=== PATIENT | female | born 1950 | race Caucasian/White ===

== ENCOUNTER → 2016-09-17 | Outpatient (CLI) | payer BC ==
[~2016-09-17] MED LIST: DENOSUMAB 60 MG/ML 1 ML SYRINGE SQ ONE
[2016-09-17 14:11] VITALS: BP 122/61; PULSE 68; RESP 16; TEMP 98.2
== END | disposition home or self-care (01) ==
LOC: PROCWHC3 13:49
PROVIDERS: ATTEND Family Medicine
DX: M81.0 Age-related osteoporosis without current pathological fracture (principal)
CPT/HCPCS: 96372; J0897

== ENCOUNTER → 2017-03-18 | Outpatient (CLI) | payer BC ==
[2017-03-18 08:20] VITALS: BP 100/58; PULSE 69; RESP 16; TEMP 98.1
== END | disposition home or self-care (01) ==
LOC: PROCWHC3 08:07
PROVIDERS: ATTEND Family Medicine
DX: M81.0 Age-related osteoporosis without current pathological fracture (principal)
CPT/HCPCS: 96372; J0897

== ENCOUNTER → 2017-09-19 | Outpatient (CLI) | payer BC ==
[2017-09-19 09:57] VITALS: BP 111/55; PULSE 65; RESP 18; TEMP 98
== END | disposition home or self-care (01) ==
LOC: PROCWHC3 09:31
PROVIDERS: ATTEND Family Medicine
DX: M81.0 Age-related osteoporosis without current pathological fracture (principal)
CPT/HCPCS: 96372; J0897

== ENCOUNTER → 2018-04-10 | Outpatient (CLI) | payer BC ==
[2018-04-10 13:07] VITALS: BP 110/60; PULSE 71; RESP 16; TEMP 98.3
== END | disposition home or self-care (01) ==
LOC: PROCWHC3 12:50
PROVIDERS: ATTEND Family Medicine
DX: M81.0 Age-related osteoporosis without current pathological fracture (principal)
CPT/HCPCS: 96372; J0897

== ENCOUNTER → 2018-08-07 | Outpatient (CLI) | payer BC ==
--- NOTE | 2018-08-07 16:24 | BD ---
EXAMINATION TYPE: Axial Bone Density DATE OF EXAM: 08/07/2018 COMPARISON: 08.07.2016 CLINICAL HISTORY: 67 YR OLD FEMALE....ICD-10 CODE: Z78.0 ASYMPTOMATIC MENOPAUSAL STATE Height: 66.5 Weight: 139 FRAX RISK QUESTIONS: History of Fracture in Adulthood: YES Secondary Osteoporosis: YES 3. Menopause before 45: YES RISK FACTORS HISTORY OF: HX OF LT HUMORAL FX...AND LT WRIST AN ADULT Spine Fracture: COMPRESSION FX OF T12... AN ADULT History of Wrist Fracture: LT WRIST Active: YES Postmenopausal woman: TOTAL HYST AT 39 YRS OLD MEDICATIONS: Thyroid Medications: YES, SYNTHROID SINCE AGE 11 Additional Medications: VIT D Additional History: NOTHING TO NOTE EXAM MEASUREMENTS: Bone mineral densitometry was performed using the [employer] System. Bone mineral density as measured about the Lumbar spine is: ----- L1-L4(G/cm2): 1.188 T Score Values are as follows: ----- L1: 0.4 ----- L2: -0.8 ----- L3: 0.6 ----- L4: 0.0 ----- L1-L4: 0.1 Bone mineral density has: Increased 9.7% since study of: 08.07.2016 Bone mineral density about the R hip (g/cm2): 0.791 Bone mineral density about the L hip (g/cm2): 0.794 T Score values are as follows: -----R Neck: -0.9 -----L Neck: -1.4 -----R Total: -1.7 -----L Total: -1.7 Bone mineral density has: Increased 1.7% since study of: 08.07.2016 FRAX%s: THERE IS A 14.2% CHANCE FOR A MAJOR OSTEOPOROTIC FX AND A 1.8% FOR HIP FX....PROBABILITY O F FX IN 10 YRS TIME IMPRESSION: Osteopenia (T Score between -2.5 and -1). There is slightly increased risk of fracture and the patient may be considered for treatment. Re-Screen 2-5 years. NOTE: T-SCORE=SD OF THE YOUNG ADULT MEAN.
== END | disposition home or self-care (01) ==
LOC: RADBDWWP 14:48
PROVIDERS: ATTEND Family Medicine
DX: M85.80 Other specified disorders of bone density and structure, unspecified site (principal); Z78.0 Asymptomatic menopausal state
CPT/HCPCS: 77080

== ENCOUNTER → 2018-08-28 | Outpatient (CLI) | payer BC ==
--- NOTE | 2018-08-31 12:23 | EST ---
EXERCISE STRESS AGE: 67 SEX: Female HT: 68" WT: 140 lb PROTOCOL: Stress Echo STAGE: III DURATION OF EXERCISE: 8 minutes HEART RATE REST: 60 BLOOD PRESSURE REST: 97/51 MAXIMUM HEART RATE ACHIEVED: 153 MAXIMUM BLOOD PRESSURE: 165/69 85% MPHR: 129 100% MPHR: 152 METS: 9.7 INDICATIONS: Chest pain. RESULTS: Patient was exercised for a total period of 8 minutes. The peak heart rate of 153 was achieved. Maximum blood pressure of 165/69 mmHg was noted. The patient did not complain of any chest pain during the test. Resting EKG shows normal sinus rhythm with normal UT interval and QRS duration and normal ST-T waves. No ST-segment depression suggestive of ischemia is noted. Baseline echocardiographic images reveals normal left ventricular chamber size with normal left ventricular systolic function. In the immediate postexercise period, normal increase in the wall thickness and contractility is noted. FINAL IMPRESSION: This stress echocardiographic study is negative for stress-induced ischemia. EKG portion of the stress test is not suggestive of ischemia. MMODL / IJN: [id number] /
== END | disposition home or self-care (01) ==
LOC: RADNMMAIN 08:53
PROVIDERS: ATTEND Family Medicine
DX: R07.89 Other chest pain (principal)
CPT/HCPCS: 93351

== ENCOUNTER → 2018-12-11 | Outpatient (CLI) | payer BC ==
--- NOTE | 2018-12-11 11:16 | XR ---
EXAMINATION TYPE: XR cervical spine comp DATE OF EXAM: 12/11/2018 COMPARISON: None HISTORY: Cervical pain M 54.2 TECHNIQUE: Five-view cervical spine FINDINGS: Disc space narrowing is present C5-6 C6-7. Some posterior endplate spurring is present C5-C 6. The prevertebral space is normal. Posterior spinal lamellar line is intact. Some facet degenerativ e changes are present greater in the mid cervical spine Some narrowing of the C5-6 left foramen is present. Remaining foramen appear patent. Odontoid is limi clement with overlying occiput. IMPRESSION: 1. Mild foraminal narrowing C5-6 on the left. 2. Degenerative disc changes C5-6 C6-7
--- NOTE | 2018-12-11 11:40 | MR ---
EXAMINATION TYPE: MR brain wo/w con DATE OF EXAM: 12/11/2018 COMPARISON: None HISTORY: Migraine TECHNIQUE: Multiplanar, multisequence images of the brain and brainstem is performed without and with IV contras t, utilizing 6.5 mL intravenous Gadavist . FINDINGS: Diffusion weighted images demonstrate no evidence of a recent infarct or other diffusion ab normality. There are a few scattered areas of abnormal signal within the white matter which are nonsp ecific. Ventricular system is midline. Mild generalized degenerative change noted. Changes of mild chronic sinusitis noted. Bilateral mild chronic mastoiditis noted. Abnormal signal wi thin the basal ganglia bilaterally suggestive of a prominent Virchow-Senthil spaces or remote lacunar i nfarcts. Signal the renée may been the basis of previous ischemia. Midline structures demonstrate normal morphology. The craniocervical junction appears within normal limits. Post contrast images demonstrate no abnormal enhancement. The dural venous sinuses appear pa tent. IMPRESSION: 1. There are few scattered tiny areas of abnormal signal within the white matter which are nonspecifi c can be seen with migraine headaches, remote microvascular ischemia, or demyelinating process. Corre late clinically. 2. There are nondescript tiny focal areas of abnormal signal within the renée is nonspecific but likel y on the basis of remote ischemia.
== END ==
LOC: RADMRIMAIN 08:38
PROVIDERS: ATTEND Family Medicine
DX: R90.89 Other abnormal findings on diagnostic imaging of central nervous system (principal); M48.02 Spinal stenosis, cervical region; M50.322 Other cervical disc degeneration at C5-C6 level; G43.909 Migraine, unspecified, not intractable, without status migrainosus
CPT/HCPCS: 72050; 70553; A9585

== ENCOUNTER → 2018-12-24 | Outpatient (CLI) | payer BC ==
--- NOTE | 2018-12-24 21:24 | MR ---
EXAMINATION TYPE: MR cervical spine wo con DATE OF EXAM: 12/24/2018 COMPARISON: Correlation CT chest 06/25/2017 HISTORY: 68-year-old female with pain, Cervical disc degeneration TECHNIQUE: Multiplanar, multisequence images of the cervical spine were acquired. FINDINGS: No craniocervical junction abnormality, predental space widening, or prevertebral soft tissue swellin g. Preserved alignment of the cervical spine. No suspicious bone marrow placement. Moderate degenerative disc disease, greatest from C5 to C7 levels. Intervertebral discs are degenerat ed, desiccated, moderately narrowed, with discussed by complex formation. Posterior annular fissure n oted at C3-C4. Multilevel ligamentum flavum thickening and hypertrophic facet and uncovertebral joint degenerative c hanges demonstrated. At C2-C3, facet arthropathy without significant canal or foraminal stenosis. At C3-C4, facet and uncovertebral joint degenerative change. No significant canal or foraminal stenos is. At C4-C5, facet and uncovertebral joint degenerative change. Changes result in mild left neural monika inal stenosis. Disc osteophyte complex with posterior fissure and ligamentum flavum thickening contri butes to moderate spinal canal stenosis with abutment of both the dorsal and ventral cord. At C5-C6, uncovertebral joint and facet degenerative change with disc osteophyte complex and ligament um flavum thickening. Again, there is moderate spinal canal stenosis with abutment of both the dorsal and ventral cord. Slight ventral cord flattening. Changes result in moderate left and moderate to se francoise right neuroforaminal stenosis. At C6-C7, discussed by complex with uncovertebral joint and facet arthropathy. Changes result in mild narrowing of the spinal canal with slight abutment of the ventral cord. Severe right and moderate le ft neuroforaminal stenosis. At C7-T1, hypertrophic facet arthropathy particularly on the right contributes to moderate to severe right neuroforaminal stenosis. No spinal canal stenosis. No T2-weighted cord signal abnormality is identified. Cystic lesion within the posterior mediastinum, partially visualized, refer to sagittal image 11 and coronal image 7. Patient's prior 2017 CT shows similar cystic lesions, possible duplication cyst or l ymphangioma. IMPRESSION: 1. Moderate degenerative disc disease, greatest from C5 through C7 levels. Additional multilevel liga mentum flavum thickening and facet/uncovertebral joint arthropathy. 2. There is overall moderate narrowing of the spinal canal at C4-C5 and C5-C6 with mild narrowing of the spinal canal at C6-C7. There is variable abutment of the cord and slight cord flattening at a cou ple levels but no fred cord compression or high-grade canal compromise. 3. Variable bilateral neuroforaminal stenoses as outlined above. 4. Partially visualized cystic structure within the mediastinum was present back on the 2017 CT as we ll. Stability suggests a benign etiology with a couple differential considerations including foregut duplication cyst and lymphangioma.
== END | disposition home or self-care (01) ==
LOC: RADMRIMAIN 07:59
PROVIDERS: ATTEND Family Medicine
DX: M48.02 Spinal stenosis, cervical region (principal); M50.322 Other cervical disc degeneration at C5-C6 level; M46.82 Other specified inflammatory spondylopathies, cervical region
CPT/HCPCS: 72141

== ENCOUNTER → 2019-03-19 | Outpatient (CLI) | payer BC ==
--- NOTE | 2019-03-19 11:52 | XR ---
EXAMINATION TYPE: XR lumbar spine 2 or 3V DATE OF EXAM: 03/19/2019 CLINICAL HISTORY: pain TECHNIQUE: Three views of the lumbar spine are submitted. COMPARISON: None. FINDINGS: Curvature of the lumbar spine is noted convex to the left. Moderate to severe multilevel degenerative disc space narrowing greatest at L3-4. Ventral spondylosis and facet joint arthropathy. No evidence for compression fracture or malalignment. IMPRESSION: No acute fracture or dislocation is seen in the lumbar spine. ICD 10 NO FRACTURE, INITIAL EVALUATION
== END | disposition home or self-care (01) ==
LOC: RADXRMAIN 10:58
PROVIDERS: ATTEND Family Medicine
DX: S33.5XXA Sprain of ligaments of lumbar spine, initial encounter (principal)
CPT/HCPCS: 72100

== ENCOUNTER → 2019-03-25 | Outpatient (CLI) | payer BC ==
--- NOTE | 2019-03-26 08:54 | MR ---
EXAMINATION TYPE: MR lumbar spine wo con DATE OF EXAM: 03/25/2019 COMPARISON: 08/08/2016 Tarlov cyst in the sacrum are noted. Appears stable. HISTORY: Low back pain TECHNIQUE: T1 and T2 axial and sagittal images of the lumbar spine are submitted. FINDINGS: There is no abnormal signal seen within the visualized spinal cord or paraspinal soft tissu es. There are chronic appearing superior endplate deformities of T12 and L1. Stable low area of signa l involving the left iliac wing likely related to bone island. Finding is low in signal on both T1 an d T2 imaging. At L1-2 there is degenerative disc disease and facet arthropathy. No canal stenosis or foraminal encr oachment. At L2-3 there is degenerative disc disease and facet arthropathy with ligamentum flavum hypertrophy. No canal stenosis or foraminal encroachment. At L3-4 there is a moderate to severe degenerative disc disease with facet arthropathy and ligamentum flavum hypertrophy. There is diffuse disc bulging greater paracentrally to the right with mild right -sided foraminal encroachment. This is similar to the prior exam. At L4-5 there is advanced facet arthropathy with hypertrophy of the facet joints and ligamentum flavu m. Broad-based central disc bulging results in mild effacement of thecal sac. Neural foramina are pat ent. Borderline to mild canal stenosis. At L5-S1 there is degenerative disc disease with facet arthropathy. Neural foramina are patent. No Ca nal stenosis. No disc herniation. IMPRESSION: 1. Chronic endplate deformities of T12 and L1 with the a deformity involving T12 new from the prior e xam. 2. Stable large Tarlov cyst at the S2 level. 3. Fairly stable multilevel degenerative disc disease most marked at L3-L4. Disc bulging and hypertro phic changes at this level result in mild right foraminal encroachment. 4. Borderline central stenosis L4-L5 due to hypertrophic changes and disc bulging.
== END | disposition home or self-care (01) ==
LOC: RADMRIMAIN 12:47
PROVIDERS: ATTEND Physician Assistant
DX: M48.061 Spinal stenosis, lumbar region without neurogenic claudication (principal); M51.26 Other intervertebral disc displacement, lumbar region; M51.36 Other intervertebral disc degeneration, lumbar region; M43.8X5 Other specified deforming dorsopathies, thoracolumbar region
CPT/HCPCS: 72148

== ENCOUNTER → 2019-04-16 | Outpatient (CLI) | payer BC ==
--- NOTE | 2019-04-16 08:27 | US ---
EXAMINATION TYPE: US abdomen complete DATE OF EXAM: 04/16/2019 COMPARISON: NONE CLINICAL HISTORY: R10.11 right upper quad pain. EXAM MEASUREMENTS: Liver Length: 14.6 cm Gallbladder Wall: .2 cm CBD: .4 cm Spleen: 7.1 cm Right Kidney: 8.7 x 3.6 x 3.8 cm Left Kidney: 9.3 x 4.2 x 3.9 cm Pancreas: Tail obscured by overlying bowel gas Liver: Increased attenuation Gallbladder: wnl Evidence for sonographic Preciado's sign: No CBD: wnl Spleen: wnl Right Kidney: wnl Left Kidney: wnl Upper IVC: wnl Abd Aorta: wnl IMPRESSION: 1. Visualized abdomen ultrasound is unremarkable.
== END | disposition home or self-care (01) ==
LOC: RADUSMAIN 07:49
PROVIDERS: ATTEND Family Medicine
DX: R10.11 Right upper quadrant pain (principal)
CPT/HCPCS: 76700

== ENCOUNTER → 2019-06-18 | Outpatient (CLI) | payer BC ==
[2019-06-18 10:03] LABS: Basophils # (A) 0.1 k/uL (0-0.2); Basophils % (A) 1 %; Eosinophils # (A) 0.2 k/uL (0-0.7); Eosinophils % (A) 2 %; HCT 40.6 % (34.0-46.0); HGB 13.3 gm/dL (11.4-16.0); Lymphocytes # (A) 1.6 k/uL (1.0-4.8); Lymphocytes % (A) 17 %; MCHC 32.8 g/dL (31.0-37.0); MCV 103.7 fL (80.0-100.0); Macrocytosis Slight; Mean Platelet Volume 6.4; Monocytes # (A) 0.6 k/uL (0-1.0); Monocytes % (A) 6 %; Neutrophils # (A) 6.9 k/uL (1.3-7.7); Neutrophils % (A) 72 %; Platelet Count 379 k/uL (150-450); RBC 3.92 m/uL (3.80-5.40); RDW 12.2 % (11.5-15.5); WBC 9.6 k/uL (3.8-10.6)
[2019-06-18 16:46] LABS: African American GFR (CKD) 66.6 (60.0-200.0); Albumin 3.9 g/dL (3.80-4.90); Albumin/Globulin Ratio 1.95 (1.60-3.17); Anion Gap 7.7 mmol/L (4.00-12.00); Calcium 9.8 mg/dL (8.7-10.3); Carbon Dioxide 28.3 mmol/L (21.6-31.8); Chol/HDL Ratio 2.47; Potassium 4.8 mmol/L (3.5-5.5); Total Bilirubin 0.4 mg/dL (0.2-1.2); Total Protein 5.9 g/dL (6.2-8.2)
== END | disposition home or self-care (01) ==
LOC: LABWHC1 08:47
PROVIDERS: ATTEND Family Medicine
DX: Z13.220 Encounter for screening for lipoid disorders (principal); E03.9 Hypothyroidism, unspecified; S32.000S Wedge compression fracture of unspecified lumbar vertebra, sequela; S22.000A Wedge compression fracture of unspecified thoracic vertebra, initial encounter for closed fracture
CPT/HCPCS: 36415; 80053; 80061; 84443; 85025

== ENCOUNTER → 2020-05-04 | Outpatient (CLI) | payer BC ==
--- NOTE | 2020-05-04 16:12 | XR ---
EXAMINATION TYPE: XR hand complete RT DATE OF EXAM: 05/04/2020 CLINICAL HISTORY: Osteoarthritis and pain. TECHNIQUE: Frontal, lateral and oblique images of the right hand are obtained. COMPARISON: None. FINDINGS: There is no acute fracture/dislocation evident in the right hand. [id number] narrowi ng base of first metacarpal and at level of triscaphe joint. Mild 2 moderate narrowing throughout th e PIP and DIP joints of the phalanges. Moderate narrowing second and third metacarpophalangeal joints . Osseous structures are somewhat demineralized. The overlying soft tissue appears unremarkable. IMPRESSION: As above.
== END | disposition home or self-care (01) ==
LOC: RADXRYALE 15:50
PROVIDERS: ATTEND Physician Assistant Medical
DX: M25.531 Pain in right wrist (principal); M25.841 Other specified joint disorders, right hand

== ENCOUNTER → 2020-09-12 | Outpatient (CLI) | payer BC ==
[2020-09-12 12:30] LABS: Albumin 4.3 g/dL (3.80-4.90); Magnesium 1.9 mg/dL (1.5-2.4); Non-African American GFR(CKD) 45.8 (60.0-200.0); Phosphorus 3.8 mg/dL (2.4-5.1); Total Protein 6.5 g/dL (6.2-8.2)
== END | disposition home or self-care (01) ==
LOC: LABWHC1 07:03
PROVIDERS: ATTEND Internal Medicine Endocrinology, Diabetes & Metabolism
DX: M81.0 Age-related osteoporosis without current pathological fracture (principal); Z79.818 Long term (current) use of other agents affecting estrogen receptors and estrogen levels; N95.1 Menopausal and female climacteric states; N18.30 Chronic kidney disease, stage 3 unspecified; Z87.310 Personal history of (healed) osteoporosis fracture
CPT/HCPCS: 36415; 82040; 82306; 82565; 83735; 83970; 84075; 84100; 84155

== ENCOUNTER → 2020-10-03 | Outpatient (CLI) | payer BC ==
--- NOTE | 2020-10-03 14:00 | ECHOF ---
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 This was a technically adequate study. LV size, wall thickness and systolic function are normal, with an EF greater than 55%. The left filipe tricular size is normal. The right ventricle is normal in size. The left atrial size is normal. The right atrial size is normal. The aortic valve is trileaflet, and appears structurally normal. No aortic stenosis or regurgitation. The mitral valve is normal. Mild mitral regurgitation is present. The tricuspid valve appears structurally normal. Mild tricuspid regurgitation present. Right vent ricular systolic pressure is normal at < 35 mmHg. Trace/mild (physiologic) pulmonic regurgitation. The aortic root size is normal. There is no pericardial effusion. CONCLUSIONS -------- 1. LV size, wall thickness and systolic function are normal, with an EF greater than 55%. 2. The left atrial size is normal. 3. The aortic valve is trileaflet, and appears structurally normal. No aortic stenosis or regurgitati on. 4. Mild mitral regurgitation is present. 5. Mild tricuspid regurgitation present. 6. Trace/mild (physiologic) pulmonic regurgitation. OWNER/PHOTOGRAPHER: Kary Abrams RDCS
== END | disposition home or self-care (01) ==
LOC: CPPFTMAIN 10:11
PROVIDERS: ATTEND Internal Medicine Rheumatology
DX: J98.8 Other specified respiratory disorders (principal)
CPT/HCPCS: 93306; 94060; 94726; 94729

== ENCOUNTER 2021-11-28 07:44 | Observation (INO) | payer MEDICARE, BC ==
[2021-11-28] MEDS ORDERED: SODIUM CHLORIDE 0.9% 500 ML 500 ML IV STA (07:57)
[2021-11-28] MEDS ORDERED: DIPH,PERTUS(ACELL)TETVAC-LF 0.5 ML VIAL IM ONE (07:59)
--- NOTE | 2021-11-28 08:10 | ED ---
General Adult HPI - General Source: patient, EMS, RN notes reviewed, old records reviewed Mode of arrival: EMS - History of Present Illness -: hour(s) Location: head (left temporal/eye) Radiation: non-radiation Severity scale (1-10): 4 Quality: aching Consistency: constant Worsens with: other (palpation) Associated Symptoms: other (RLQ abd pain) Treatments Prior to Arrival: none <Osvaldo Celaya - Last Filed: 11/28/21 10:35> <Conchita Medina - Last Filed: 11/28/21 23:04> - General Chief complaint: Head Injury Stated complaint: Fall Time Seen by Provider: 11/28/21 07:55 - History of Present Illness Initial comments: 71-year-old female presents alert and oriented 4 with complaints of syncopal episode this morning. Patient states that she fell and hit her head in the kitchen. She did not lose consciousness. She is not on any blood thinners. She states that she thinks she may be dehydrated. She does have right lower quadrant abdominal pain since last night which is why she took Aleve PM and thinks it may have dehydrated her. She did sustain a 1 cm laceration just lateral to the left eyebrow. No active bleeding. (Osvaldo Celaya) - Related Data Home Medications Medication Instructions Recorded Confirmed Levothyroxine Sodium [Synthroid] 125 mcg PO DAILY@0700 06/21/16 11/28/21 Calcium Carbonate [Calcium] 600 mg PO DAILY@1100 09/17/16 11/28/21 Denosumab [Prolia] 60 mg SQ Q180D 11/28/21 11/28/21 Famotidine [Pepcid] 20 mg PO BID PRN 11/28/21 11/28/21 L.acidoph,Paracasei, B.lactis 1 cap PO DAILY@1100 11/28/21 11/28/21 [Probiotic] Allergies Allergy/AdvReac Type Severity Reaction Status Date / Time Iodinated Contrast Media Allergy Rash/Hives Verified 11/28/21 09:48 [Iodinated Contrast Media - IV Dye] shellfish derived AdvReac Nausea & Verified 11/28/21 09:48 Vomiting & Diarrhea Review of Systems ROS Other: All systems not noted in ROS Statement are negative. <Osvaldo Celaya - Last Filed: 11/28/21 10:35> ROS Other: All systems not noted in ROS Statement are negative. <Conchita Medina - Last Filed: 11/28/21 23:04> ROS Statement: Those systems with pertinent positive or pertinent negative responses have been documented in the HPI. Past Medical History Past Medical History: Skin Disorder, Thyroid Disorder Additional Past Medical History / Comment(s): Osteoporosis. Psoriasis History of Any Multi-Drug Resistant Organisms: None Reported Past Surgical History: Adenoidectomy, Appendectomy, Hysterectomy, Orthopedic S urgery, Tonsillectomy, Tubal Ligation Additional Past Surgical History / Comment(s): Fractured left humerous. ThyroMeningeoEncaphilitis Past Psychological History: No Psychological Hx Reported Smoking Status: Never smoker Past Alcohol Use History: Rare Past Drug Use History: None Reported <Osvaldo Cealya - Last Filed: 11/28/21 10:35> - Past Family History Father Family Medical History: Cancer Additional Family Medical History / Comment(s): Father at 64 from lung cancer. He was a smoker. Mother Additional Family Medical History / Comment(s): Mother of heart problems and ARDS. <Conchita Medina - Last Filed: 11/28/21 23:04> General Exam Limitations: no limitations General appearance: alert, in no apparent distress Head exam: Present: normocephalic, other (1cm laceration to left) Eye exam: Present: normal appearance, EOMI. Absent: scleral icterus, conjunctival injection, nystagmus, periorbital swelling ENT exam: Present: mucous membranes moist Respiratory exam: Present: normal lung sounds bilaterally. Absent: respiratory distress, wheezes, rales, rhonchi, stridor, accessory muscle use Cardiovascular Exam: Present: regular rate, normal heart sounds. Absent: JVD GI/Abdominal exam: Present: soft, tenderness (rlq tenderness). Absent: distended, guarding, rebound, rigid Extremities exam: Present: normal capillary refill. Absent: pedal edema Neurological exam: Present: alert, oriented X3 Psychiatric exam: Present: normal affect, normal mood Skin exam: Present: warm, dry, normal color. Absent: rash, cyanosis, diaphoretic, pallor <Osvaldo Celaya - Last Filed: 11/28/21 10:35> Course Vital Signs 11/28/21 11/28/21 07:46 10:32 Temperature 97.0 F L 97.1 F L Pulse Rate 63 Respiratory 16 16 Rate Blood Pressure 118/69 Blood Pressure 114/64 [Right Arm Sitting] Blood Pressure 119/66 [Right Arm Standing] Blood Pressure 114/76 [Right Arm Supine] O2 Sat by Pulse 98 Oximetry EKG Findings - EKG Results: EKG: sinus rhythm (Ventricular rate of 61, OH interval 0.161, QRS 0.92, QTC 0.430) <Osvaldo Celaya - Last Filed: 11/28/21 10:35> Medical Decision Making - Lab Data Result diagrams: 11/28/21 08:07 11/28/21 08:07 <Osvaldo Celaya - Last Filed: 11/28/21 10:35> - Lab Data Result diagrams: 11/28/21 08:07 11/28/21 08:07 <Conchita Medina - Last Filed: 11/28/21 23:04> - Medical Decision Making 71-year-old female presents with a syncopal episode this morning in the kitchen. Patient states that she has had right lower quadrant abdominal pain since last night and believes her syncopal episode was related to dehydration after taking Advil PM. She states she has had syncopal episodes in the past and had an echo cardiogram in 2019. Also being tested at [facility] for scleroderma. Patient has a surgical history of partial hysterectomy and appendectomy. CT C-spine shows no acute fracture or dislocation. There is no evidence of an hemorrhage or midline shift seen. Chest x-ray shows chronic changes without acute pulmonary process. There is demineralization and underlying scoliosis redemonstrated. There is a chronic compression type fracture of T7 present. Ultrasound shows urinary bladder slightly lobulated with a small diverticulum. No free fluid in the pelvis. No adnexal masses are seen. Ultrasound shows a surgically absent uterus. Ovaries obscured by overlying bowel gas. EKG shows sinus rhythm with a ventricular rate of 61 and troponin negative at 0.012. Electrolytes are unremarkable. Hemoglobin and hematocrit are stable. Exofin glue applied with Steri-Strips to the laceration after irrigated with normal saline. Tetanus was updated. Patient is ambulatory with steady gait and normal. She does continue to complain of left-sided rib pain with no evidence of bruising or erythema at this time. Patient was offered admission to the hospital for evaluation of her syncopal episode. After discussing this with her family she did agree to admission. Vital signs are stable. Case discussed with Dr. Medina ([facility]) I was available for consultation in the emergency department. The history and physical exam were done by the midlevel provider. I was consulted for this patients care. I reviewed the case with the midlevel provider and based on their presentation of the patient, I agree with the assessment, medical decision making and plan of care as documented. Chart was dictated using [employer] dictation software. Attempts were made to correct any dictation errors however some typographical errors may persist. (Conchita Medina) - Lab Data Lab Results 11/28/21 11/28/21 11/28/21 Range/Units 08:07 08:07 08:07 WBC 14.0 H (3.8-10.6) k/uL RBC 3.98 (3.80-5.40) m/uL Hgb 13.1 (11.4-16.0) gm/dL Hct 40.7 (34.0-46.0) % MCV 102.4 H (80.0-100.0) fL MCH 33.0 (25.0-35.0) pg MCHC 32.2 (31.0-37.0) g/dL RDW 11.9 (11.5-15.5) % Plt Count 284 (150-450) k/uL MPV 7.5 Neutrophils % 71 % Lymphocytes % 14 % Monocytes % 7 % Eosinophils % 5 % Basophils % 1 % Neutrophils # 10.0 H (1.3-7.7) k/uL Lymphocytes # 1.9 (1.0-4.8) k/uL Monocytes # 1.0 (0-1.0) k/uL Eosinophils # 0.7 (0-0.7) k/uL Basophils # 0.1 (0-0.2) k/uL PT 9.9 (9.0-12.0) sec INR 0.9 (<1.2) APTT 22.4 (22.0-30.0) sec Sodium 137 (137-145) mmol/L Potassium 4.7 (3.5-5.1) mmol/L Chloride 107 (98-107) mmol/L Carbon Dioxide 26 (22-30) mmol/L Anion Gap 4 mmol/L BUN 19 H (7-17) mg/dL Creatinine 1.04 (0.52-1.04) mg/dL Est GFR (CKD-EPI)AfAm 62 (>60 ml/min/1.73 sqM) Est GFR (CKD-EPI)NonAf 54 (>60 ml/min/1.73 sqM) Glucose 95 (74-99) mg/dL Plasma Lactic Acid Junior (0.7-2.0) mmol/L Calcium 8.9 (8.4-10.2) mg/dL Magnesium 2.0 (1.6-2.3) mg/dL Total Bilirubin 0.7 (0.2-1.3) mg/dL AST 29 (14-36) U/L ALT 17 (4-34) U/L Alkaline Phosphatase 47 (38-126) U/L Troponin I (0.000-0.034) ng/mL Total Protein 6.8 (6.3-8.2) g/dL Albumin 3.6 (3.5-5.0) g/dL TSH (0.350-5.500) uIU/mL Urine Color Urine Appearance (Clear) Urine pH (5.0-8.0) Ur Specific [place] (1.001-1.035) Urine Protein (Negative) Urine Glucose (UA) (Negative) Urine Ketones (Negative) Urine Blood (Negative) Urine Nitrite (Negative) Urine Bilirubin (Negative) Urine Urobilinogen (<2.0) mg/dL Ur Leukocyte Esterase (Negative) 11/28/21 11/28/21 11/28/21 Range/Units 08:07 08:07 08:07 WBC (3.8-10.6) k/uL RBC (3.80-5.40) m/uL Hgb (11.4-16.0) gm/dL Hct (34.0-46.0) % MCV (80.0-100.0) fL MCH (25.0-35.0) pg MCHC (31.0-37.0) g/dL RDW (11.5-15.5) % Plt Count (150-450) k/uL MPV Neutrophils % % Lymphocytes % % Monocytes % % Eosinophils % % Basophils % % Neutrophils # (1.3-7.7) k/uL Lymphocytes # (1.0-4.8) k/uL Monocytes # (0-1.0) k/uL Eosinophils # (0-0.7) k/uL Basophils # (0-0.2) k/uL PT (9.0-12.0) sec INR (<1.2) APTT (22.0-30.0) sec Sodium (137-145) mmol/L Potassium (3.5-5.1) mmol/L Chloride (98-107) mmol/L Carbon Dioxide (22-30) mmol/L Anion Gap mmol/L BUN (7-17) mg/dL Creatinine (0.52-1.04) mg/dL Est GFR (CKD-EPI)AfAm (>60 ml/min/1.73 sqM) Est GFR (CKD-EPI)NonAf (>60 ml/min/1.73 sqM) Glucose (74-99) mg/dL Plasma Lactic Acid Junior 0.8 (0.7-2.0) mmol/L Calcium (8.4-10.2) mg/dL Magnesium (1.6-2.3) mg/dL Total Bilirubin (0.2-1.3) mg/dL AST (14-36) U/L ALT (4-34) U/L Alkaline Phosphatase (38-126) U/L Troponin I <0.012 (0.000-0.034) ng/mL Total Protein (6.3-8.2) g/dL Albumin (3.5-5.0) g/dL TSH 0.466 (0.350-5.500) uIU/mL Urine Color Urine Appearance (Clear) Urine pH (5.0-8.0) Ur Specific [place] (1.001-1.035) Urine Protein (Negative) Urine Glucose (UA) (Negative) Urine Ketones (Negative) Urine Blood (Negative) Urine Nitrite (Negative) Urine Bilirubin (Negative) Urine Urobilinogen (<2.0) mg/dL Ur Leukocyte Esterase (Negative) 11/28/21 Range/Units 09:55 WBC (3.8-10.6) k/uL RBC (3.80-5.40) m/uL Hgb (11.4-16.0) gm/dL Hct (34.0-46.0) % MCV (80.0-100.0) fL MCH (25.0-35.0) pg MCHC (31.0-37.0) g/dL RDW (11.5-15.5) % Plt Count (150-450) k/uL MPV Neutrophils % % Lymphocytes % % Monocytes % % Eosinophils % % Basophils % % Neutrophils # (1.3-7.7) k/uL Lymphocytes # (1.0-4.8) k/uL Monocytes # (0-1.0) k/uL Eosinophils # (0-0.7) k/uL Basophils # (0-0.2) k/uL PT (9.0-12.0) sec INR (<1.2) APTT (22.0-30.0) sec Sodium (137-145) mmol/L Potassium (3.5-5.1) mmol/L Chloride (98-107) mmol/L Carbon Dioxide (22-30) mmol/L Anion Gap mmol/L BUN (7-17) mg/dL Creatinine (0.52-1.04) mg/dL Est GFR (CKD-EPI)AfAm (>60 ml/min/1.73 sqM) Est GFR (CKD-EPI)NonAf (>60 ml/min/1.73 sqM) Glucose (74-99) mg/dL Plasma Lactic Acid Junior (0.7-2.0) mmol/L Calcium (8.4-10.2) mg/dL Magnesium (1.6-2.3) mg/dL Total Bilirubin (0.2-1.3) mg/dL AST (14-36) U/L ALT (4-34) U/L Alkaline Phosphatase (38-126) U/L Troponin I (0.000-0.034) ng/mL Total Protein (6.3-8.2) g/dL Albumin (3.5-5.0) g/dL TSH (0.350-5.500) uIU/mL Urine Color Light Yellow Urine Appearance Clear (Clear) Urine pH 7.0 (5.0-8.0) Ur Specific [place] 1.008 (1.001-1.035) Urine Protein Negative (Negative) Urine Glucose (UA) Negative (Negative) Urine Ketones Negative (Negative) Urine Blood Negative (Negative) Urine Nitrite Negative (Negative) Urine Bilirubin Negative (Negative) Urine Urobilinogen <2.0 (<2.0) mg/dL Ur Leukocyte Esterase Negative (Negative) Disposition Decision Date: 11/28/21 Decision Time: 10:17 <Osvaldo Celaya - Last Filed: 11/28/21 10:35> <Conchita Medina - Last Filed: 11/28/21 23:04> Clinical Impression: Syncope, Facial laceration, Abdominal pain Disposition: ADMITTED IP TO THIS HOSP Condition: Good
[2021-11-28] MEDS ORDERED: LIDOCAINE/EPINEPHR/TETRACAINE 5 ML BOTTLE TOPICAL ONE (08:13)
[2021-11-28 08:30] LABS: Basophils # (A) 0.1 k/uL (0-0.2); Basophils % (A) 1 %; Eosinophils # (A) 0.7 k/uL (0-0.7); Eosinophils % (A) 5 %; HCT 40.7 % (34.0-46.0); HGB 13.1 gm/dL (11.4-16.0); Lymphocytes # (A) 1.9 k/uL (1.0-4.8); Lymphocytes % (A) 14 %; MCHC 32.2 g/dL (31.0-37.0); MCV 102.4 fL (80.0-100.0); Mean Platelet Volume 7.5; Monocytes % (A) 7 %; Neutrophils % (A) 71 %; Platelet Count 284 k/uL (150-450); RBC 3.98 m/uL (3.80-5.40); RDW 11.9 % (11.5-15.5)
--- NOTE | 2021-11-28 08:31 | CT ---
EXAMINATION TYPE: CT brain nadjaine julia con DATE OF EXAM: 11/28/2021 COMPARISON: NONE HISTORY: syncope with neck pain CT DLP: 1327.7 mGycm. Automated Exposure Control for Dose Reduction was Utilized. TECHNIQUE: CT scan of the head and cervical spine are performed without contrast. FINDINGS: There is no acute intracranial hemorrhage or midline shift identified. Mild ventricular a nd sulcal prominence. Lima-white matter differentiation fairly well-preserved. No suspicious opacific ation mastoid air cells. The globes are intact and the visualized sinuses are clear. Cervical spine is visualized in its entirety from C1 through upper thoracic levels and demonstrates s atisfactory alignment without evidence of acute fracture or dislocation. Prevertebral soft tissue ap pears within normal limits. The C1-C2 articulation is within normal limits on coronal images. Verte bral body heights are maintained. Gdun-iw-vahwkooc multilevel disc space narrowing C5-C6 and C6-C7 le vels. Posterior spur disc complex effaces the anterior thecal sac at these levels. Axial images show multilevel uncovertebral facet degenerative changes contributing to multilevel bilateral neural monika inal narrowing. Thyroid gland is atrophic or surgically absent. Tiny foci of air level of uncertain e tiology. Lung apices show no pneumothorax. There is apical scarring and/or chronic consolidation exte nding posteriorly. IMPRESSION: 1. There is no acute fracture or dislocation evident in the cervical spine. 2. No acute intracranial hemorrhage or midline shift is seen.
[2021-11-28 08:44] LABS: Albumin 3.6 g/dL (3.5-5.0); Calcium 8.9 mg/dL (8.4-10.2); Potassium 4.7 mmol/L (3.5-5.1); Total Bilirubin 0.7 mg/dL (0.2-1.3); Total Protein 6.8 g/dL (6.3-8.2)
[2021-11-28 08:45] LABS: INR 0.9 (<1.2); Partial Thromboplastin Time 22.4 sec (22.0-30.0); Prothrombin Time 9.9 sec (9.0-12.0)
[2021-11-28] MEDS ORDERED: TOPICAL SKIN ADHESIVE 1 EACH AMP TOPICAL ONE (09:05)
--- NOTE | 2021-11-28 09:05 | XR ---
EXAMINATION TYPE: XR chest 2V DATE OF EXAM: 11/28/2021 COMPARISON: CT chest June 25, 2017 HISTORY: Chest and left-sided rib pain after syncopal episode TECHNIQUE: Frontal and lateral views of the chest are obtained. FINDINGS: There is chronic parenchymal change without suspicious focal air space opacity, pleural ef fusion, or pneumothorax seen. The cardiac silhouette size is stable and upper limits of normal. Th e osseous structures are demineralized. Underlying scoliosis redemonstrated. Interval vertebroplasty at mild to moderate compression type fracture roughly T9 level. Mild to moderate chronic compression type fracture at T7 level is also present. IMPRESSION: Chronic changes without acute pulmonary process.
[2021-11-28] MEDS ORDERED: MORPHINE SULFATE 2 MG/ML SYRINGE IVP STA (09:07)
--- NOTE | 2021-11-28 09:31 | US ---
EXAMINATION TYPE: US pelvic complete DATE OF EXAM: 11/28/2021 COMPARISON: NONE CLINICAL HISTORY: RLQ abd pain. Pt states RLQ and pelvic pain x few days TECHNIQUE: Transabdominal (TA). Transabdominal sonographic images of the pelvis were acquired. Date of LMP: 1986- pt had uterus removed EXAM MEASUREMENTS: Uterus: Surgically absent Endometrial Stripe: Surgically absent pt refused transvaginal exam 1. Uterus: Surgically absent 2. Endometrium: Surgically absent 3. Right Ovary: Obscured by overlying bowel gas 4. Left Ovary: Obscured by overlying bowel gas 5. Bilateral Adnexa: wnl 6. Posterior cul-de-sac: wnl Urinary bladder has slightly lobulated superior contour possible small diverticulum. Urinary bladder otherwise appears within normal limits. Uterus is surgically absent. No free fluid in pelvis. Neither ovary clearly identified. No suspicious adnexal masses are seen on images obtained. IMPRESSION: As above.
[2021-11-28 10:21] LABS: Appearance,Urine Clear (Clear); Bilirubin,Urine Negative (Negative); Blood,Urine Negative (Negative); Color,Urine Light Yellow; Glucose,Urine (UA) Negative (Negative); Ketones,Urine Negative (Negative); Leukocyte Esterase,Urine Negative (Negative); Nitrite,Urine Negative (Negative); Protein,Urine Negative (Negative); Specific Gravity,Urine 1.008 (1.001-1.035); Urobilinogen,Urine <2.0 mg/dL (<2.0)
[2021-11-28] MEDS ORDERED: NALOXONE 0.4 MG/ML 1 ML VIAL IV PRN (10:32)
[2021-11-28] MEDS ORDERED: ACETAMINOPHEN TAB 325 MG TAB PO STA (10:34)
[2021-11-28] MEDS ORDERED: FAMOTIDINE 20 MG TAB PO PRN (10:34)
[2021-11-28] MEDS: CALCIUM CARBONATE 500 MG CHEWABLE PO SCH (10:48)
[2021-11-28] MEDS: LACTOBACILLUS ACIDOPH & BULGAR 1 EACH PACKET PO SCH (10:49)
--- NOTE | 2021-11-28 12:25 | P.HPIM ---
History of Present Illness Chief Complaint: Past out Patient is a 71-year-old female with a past medical history significant for hypothyroidism and GERD presents to the hospital complaining of syncopal episodes. Apparently she was sitting down when she got up she felt dizzy and passed out. She did not have any symptoms prior to this episode. Her found her on the floor. Patient woke up it was in the ambulance denies any postictal confusion, urinary or bladder incontinence. She did report a similar episode in the past when she was having a bowel movement and she suddenly passed out. She denies any chest pain, palpitations, nausea or vomiting. She has been worked up by [facility] for scleroderma. I did briefly review her antibody test which have been negative except for centromere B. She was prescribed Norvasc however patient decided not to take it due to her usually low blood pressure readings. Orthostatics were completed in the emergency department negative as per RN. Patient is being admitted for syncopal episode cardiology was consulted from the emergency department. Past Medical History Past Medical History: GERD/Reflux, Skin Disorder, Thyroid Disorder Additional Past Medical History / Comment(s): Hypothyroid, viral meningeoenc ephalitis, past back compression fractures/now hs thoracic radiculopathy, UTI, sinus infection, osteoporosis, psoriasis History of Any Multi-Drug Resistant Organisms: None Reported Past Surgical History: Adenoidectomy, Appendectomy, Hysterectomy, Orthopedic Surgery, Tonsillectomy, Tubal Ligation Additional Past Surgical History / Comment(s): L humerus fracture with surgery/hardware removed and had shoulder manipulation, 2 kyphoplasties, EGD, colonoscopy, bilateral cataract removals/lens implants. Past Anesthesia/Blood Transfusion Reactions: No Reported Reaction Past Psychological History: No Psychological Hx Reported Additional Psychological History / Comment(s): Pt resides with her spouse. She is independent. Smoking Status: Never smoker Past Alcohol Use History: Rare Past Drug Use History: None Reported - Past Family History Father Family Medical History: Cancer Additional Family Medical History / Comment(s): Father at 64 from lung cancer. He was a smoker. Mother Additional Family Medical History / Comment(s): Mother of heart problems and ARDS. Medications and Allergies Home Medications Medication Instructions Recorded Confirmed Type Levothyroxine Sodium [Synthroid] 125 mcg PO DAILY@0700 06/21/16 11/28/21 History Calcium Carbonate [Calcium] 600 mg PO DAILY@1100 09/17/16 11/28/21 History Denosumab [Prolia] 60 mg SQ Q180D 11/28/21 11/28/21 History Famotidine [Pepcid] 20 mg PO BID PRN 11/28/21 11/28/21 History L.acidoph,Paracasei, B.lactis 1 cap PO DAILY@1100 11/28/21 11/28/21 History [Probiotic] Allergies Allergy/AdvReac Type Severity Reaction Status Date / Time Iodinated Contrast Media Allergy Rash/Hives Verified 11/28/21 09:48 [Iodinated Contrast Media - IV Dye] shellfish derived AdvReac Nausea & Verified 11/28/21 09:48 Vomiting & Diarrhea Physical Exam Vitals: Vital Signs Temp Pulse Resp BP BP BP BP 11/28/21 10:32 97.1 F L 16 114/64 119/66 114/76 11/28/21 07:46 97.0 F L 63 16 118/69 Pulse Ox 11/28/21 10:32 11/28/21 07:46 98 Intake and Output 11/27/21 11/28/21 11/28/21 22:59 06:59 14:59 Other: Weight 63.503 kg Gen. patient is awake alert oriented 3 in good spirits respiratory no wheezing or rhonchi appreciated, bilateral air entry Cardio normal S1/S2 no murmurs appreciated Extremities no pitting edema noted Neuro patient is awake alert oriented 3 no focal deficits including muscle change. 5 out of 5 upper and lower extremity Results CBC & Chem 7: 11/28/21 08:07 11/28/21 08:07 Labs: Abnormal Lab Results - Last 24 Hours (Table) 11/28/21 11/28/21 Range/Units 08:07 08:07 WBC 14.0 H (3.8-10.6) k/uL MCV 102.4 H (80.0-100.0) fL Neutrophils # 10.0 H (1.3-7.7) k/uL BUN 19 H (7-17) mg/dL Thrombosis Risk Factor Assmnt - Choose All That Apply Any of the Below Risk Factors Present?: Yes Other Risk Factors: Yes Each Risk Factor Represents 2 Points: Age 61-74 years Other congenital or acquired thrombophilia - If yes, enter type in comment: No Thrombosis Risk Factor Assessment Total Risk Factor Score: 2 Thrombosis Risk Factor Assessment Level: Low Risk Assessment and Plan Assessment: Assessment: #1 syncope rule out cardiogenic versus less likely neurogenic #2 GERD #3 hypo-thyroidism Plan: -Admit medicine for close monitoring -Aspiration/fall precaution/HB 30 -Patient does have good muscle strength no need for PT/OT is independent -Obtain orthostatic and EKG -Obtain 2-D echocardiogram -Cardiology consult emergency department -Computed tomography scan of the brain reviewed negative -DVT prophylaxis Lovenox -Disposition despite discharge once evaluated and echo reviewed in the next 24 hours most likely.
--- NOTE | 2021-11-28 12:54 | P.CRDCN ---
History of Present Illness Consult date: 11/28/21 History of present illness: HISTORY OF PRESENT ILLNESS: This is a 71-year-old female with a past medical history significant for GERD and hypothyroidism. Patient does not follow with a seam stayer. We have been asked to see the patient in consultation for syncope. Patient examined at the bedside. Patient states this morning she got up from the couch to walk into the kitchen. After taking a few steps, she passed out. She believes she was out for 3-4 minutes. She denied having any chest pain or pressure. Denied SOB. Denied loss of bladder or bowel. She reports having an episode similar to this about 6 months ago. She reports she was at [facility] recently and diagnosed with a mild case of scleroderma. Patient reports her blood pressure usually runs on the lower side. * EKG reveals sinus mechanism with no signs of acute ischemia. Low voltage QRS. * Chest xray chronic changes without acute pulmonary process * Laboratory data: WBC 14.0. Hemoglobin 13.1. Platelet count 284. Sodium 138. Potassium 3.7. BUN 26. Creatinine 0.78. Troponin negative 3. * Current home cardiac medications include none * Most recent echocardiogram obtained in September 2020 revealed ejection fraction 55%, mild MR, mild TR. REVIEW OF SYSTEMS: At the time of my exam: CONSTITUTIONAL: Denies fever or chills. HEENT: Denies blurred vision, vision changes, or eye pain. Denies hemoptysis CARDIOVASCULAR: Denies chest pain. Denies orthopnea. Denies PND. Denies palpitations RESPIRATORY: Denies shortness of breath. GASTROINTESTINAL: Denies abdominal pain. Denies nausea or vomiting. HEMATOLOGIC: Denies bleeding disorders. GENITOURINARY: Denies any blood in urine. SKIN: Denies pruitis. Denies rash. PHYSICAL EXAM: VITAL SIGNS: Reviewed. GENERAL: Well-developed in no acute distress. HEENT: Head is normocephalic. Pupils are equal, round. Sclerae anicteric. Mucous membranes of the mouth are moist. Neck supple. No JVD or thyromegaly LUNGS: Respirations even and unlabored. Lungs essentially clear to auscultation bilaterally. HEART: Regular rate and rhythm. S1 and S2 heard. ABDOMEN: Soft. Nondistended. Nontender. EXTREMITIES: Normal range of motion. No clubbing or cyanosis. Peripheral pulses intact. No lower extremity edema NEUROLOGIC: Awake and alert. Oriented x 3. ASSESSMENT: Syncope, suspect secondary to orthostatic hypotension History of syncope, 6 months ago Right lower quadrant abdominal pain Recent diagnosis of mild scleroderma GERD Hypothyroidism PLAN: Obtain 2D echo to assess cardiac structure and function Orthostatics checked and unremarkable Continue telemetry monitoring Further recommendations pending patient course Nurse practitioner note has been reviewed by physician. Signing provider agrees with the documented findings, assessment, and plan of care. Past Medical History Past Medical History: GERD/Reflux, Skin Disorder, Thyroid Disorder Additional Past Medical History / Comment(s): Hypothyroid, viral meningeoencephalitis, past back compression fractures/now hs thoracic radiculopathy, UTI, sinus infection, osteoporosis, psoriasis History of Any Multi-Drug Resistant Organisms: None Reported Past Surgical History: Adenoidectomy, Appendectomy, Hysterectomy, Orthopedic Tarsha laxmi, Tonsillectomy, Tubal Ligation Additional Past Surgical History / Comment(s): L humerus fracture with surgery/hardware removed and had shoulder manipulation, 2 kyphoplasties, EGD, colonoscopy, bilateral cataract removals/lens implants. Past Anesthesia/Blood Transfusion Reactions: No Reported Reaction Past Psychological History: No Psychological Hx Reported Additional Psychological History / Comment(s): Pt resides with her spouse. She is independent. Smoking Status: Never smoker Past Alcohol Use History: Rare Past Drug Use History: None Reported - Past Family History Father Family Medical History: Cancer Additional Family Medical History / Comment(s): Father at 64 from lung cancer. He was a smoker. Mother Additional Family Medical History / Comment(s): Mother of heart problems and ARDS. Medications and Allergies Home Medications Medication Instructions Recorded Confirmed Type Levothyroxine Sodium [Synthroid] 125 mcg PO DAILY@0700 06/21/16 11/28/21 History Calcium Carbonate [Calcium] 600 mg PO DAILY@1100 09/17/16 11/28/21 History Denosumab [Prolia] 60 mg SQ Q180D 11/28/21 11/28/21 History Famotidine [Pepcid] 20 mg PO BID PRN 11/28/21 11/28/21 History L.acidoph,Paracasei, B.lactis 1 cap PO DAILY@1100 11/28/21 11/28/21 History [Probiotic] Allergies Allergy/AdvReac Type Severity Reaction Status Date / Time Iodinated Contrast Media Allergy Rash/Hives Verified 11/28/21 09:48 [Iodinated Contrast Media - IV Dye] shellfish derived AdvReac Nausea & Verified 11/28/21 09:48 Vomiting & Diarrhea Physical Exam Vitals: Vital Signs Temp Pulse Resp BP BP BP BP 11/28/21 10:32 97.1 F L 16 114/64 119/66 114/76 11/28/21 07:46 97.0 F L 63 16 118/69 Pulse Ox 11/28/21 10:32 11/28/21 07:46 98 Intake and Output 11/27/21 11/28/21 11/28/21 22:59 06:59 14:59 Other: Weight 63.503 kg Results 11/28/21 08:07 11/28/21 08:07 Cardiac Enzymes 11/28/21 11/28/21 Range/Units 08:07 08:07 AST 29 (14-36) U/L Troponin I <0.012 (0.000-0.034) ng/mL Coagulation 11/28/21 Range/Units 08:07 PT 9.9 (9.0-12.0) sec APTT 22.4 (22.0-30.0) sec CBC 11/28/21 Range/Units 08:07 WBC 14.0 H (3.8-10.6) k/uL RBC 3.98 (3.80-5.40) m/uL Hgb 13.1 (11.4-16.0) gm/dL Hct 40.7 (34.0-46.0) % Plt Count 284 (150-450) k/uL Comprehensive Metabolic Panel 11/28/21 Range/Units 08:07 Sodium 137 (137-145) mmol/L Potassium 4.7 (3.5-5.1) mmol/L Chloride 107 (98-107) mmol/L Carbon Dioxide 26 (22-30) mmol/L BUN 19 H (7-17) mg/dL Creatinine 1.04 (0.52-1.04) mg/dL Glucose 95 (74-99) mg/dL Calcium 8.9 (8.4-10.2) mg/dL AST 29 (14-36) U/L ALT 17 (4-34) U/L Alkaline Phosphatase 47 (38-126) U/L Total Protein 6.8 (6.3-8.2) g/dL Albumin 3.6 (3.5-5.0) g/dL Current Medications Generic Name Dose Route Start Last Admin Trade Name Freq PRN Reason Stop Dose Admin Acetaminophen 650 mg 11/28/21 10:32 Acetaminophen Tab 325 Mg Tab PO Q6HR PRN Mild Pain or Fever > 100.5 Calcium Carbonate/Glycine 500 mg 11/28/21 11:00 11/28/21 10:48 Calcium Carbonate 500 Mg Chewable PO 500 mg DAILY@1100 [facility] Administration Famotidine 20 mg 11/28/21 10:34 Famotidine 20 Mg Tab PO BID PRN GERD Lactobacillus Acidoph/Bulgaricus 1 each 11/28/21 11:00 11/28/21 10:49 Lactobacillus Acidoph & Bulgar 1 Each Packet PO 1 each DAILY@1100 [facility] Administration Levothyroxine Sodium 125 mcg 11/29/21 07:00 Levothyroxine 125 Mcg Tab PO DAILY@0700 [facility] Naloxone HCl 0.2 mg 11/28/21 10:32 Naloxone 0.4 Mg/Ml 1 Ml Vial IV Q2M PRN Opioid Reversal Intake and Output 11/27/21 11/28/21 11/28/21 22:59 06:59 14:59 Other: Weight 63.503 kg Patient Weight 11/29/21 06:59 Weight 63.503 kg 11/28/21 08:07 11/28/21 08:07
[2021-11-28] MEDS: ACETAMINOPHEN TAB 325 MG TAB PO PRN (16:13)
[2021-11-28] MEDS ORDERED: KETOROLAC 15 MG/ML 1 ML VIAL IVP STA (20:21)
[2021-11-29] MEDS: ACETAMINOPHEN TAB 325 MG TAB PO PRN (01:25)
[2021-11-29] MEDS ORDERED: LEVOTHYROXINE 125 MCG TAB PO SCH (07:00)
--- NOTE | 2021-11-29 07:24 | ECHOF ---
Referral Reason:syncope MEASUREMENTS -------- HEIGHT: 170.2 cm WEIGHT: 63.5 kg BP: RVIDd: 2.8 cm (< 3.3) IVSd: 0.8 cm (0.6 - 1.1) LVIDd: 4.0 cm (3.9 - 5.3) LVPWd: 1.1 cm (0.6 - 1.1) IVSs: 1.1 cm LVIDs: 3.0 cm LVPWs: 1.1 cm LAESV Index (A-L): 16.01 ml/m Ao Diam: 2.9 cm (2.0 - 3.7) AV Cusp: 2.0 cm (1.5 - 2.6) LA Diam: 3.0 cm (2.7 - 3.8) MV EXCURSION: 18.221 mm (> 18.000) MV EF SLOPE: 125 mm/s (70 - 150) EPSS: 0.4 cm MV E Guerrero: 0.75 m/s MV DecT: 257 ms MV A Guerrero: 0.86 m/s MV E/A Ratio: 0.87 RAP: 5.00 mmHg RVSP: 32.45 mmHg FINDINGS -------- Sinus rhythm. This was a technically adequate study. LV size, wall thickness and systolic function are normal, with an EF greater than 55%. The left filipe tricular size is normal. The diastolic filling pattern is normal for the age of the patient 9.21. The right ventricle is normal in size. Normal LA size by volume 22+/-6 ml/m2. The right atrial size is normal. The aortic valve is trileaflet, and appears structurally normal. No aortic stenosis or regurgitation. The mitral valve is normal. Mild mitral regurgitation is present. The tricuspid valve appears structurally normal. Mild tricuspid regurgitation present. Right vent ricular systolic pressure is normal at < 35 mmHg. The pulmonic valve was not well visualized. The aortic root size is normal. Echo free space indicative of a pericardial fat pad. CONCLUSIONS -------- 1. LV size, wall thickness and systolic function are normal, with an EF greater than 55%. 2. The aortic valve is trileaflet, and appears structurally normal. No aortic stenosis or regurgitati on. 3. Mild mitral regurgitation is present. 4. Mild tricuspid regurgitation present. 5. Echo free space indicative of a pericardial fat pad. [employer] DEVELOPER: Kary Abrams RDCS
[2021-11-29 08:21] VITALS: BP 111/71; PULSE 65; RESP 18; TEMP 97.9
[2021-11-29 09:06] LABS: Basophils # (A) 0.05 X 10*3/uL (0.00-0.10); Basophils % (A) 0.4 %; Eosinophils # (A) 0.75 X 10*3/uL (0.04-0.35); Eosinophils % (A) 6.5 %; HCT 38.4 % (37.2-46.3); HGB 12.1 g/dL (12.0-15.0); Immature Grans, Automated 0.3 %; Lymphocytes # (A) 2.74 X 10*3/uL (0.90-5.00); Lymphocytes % (A) 23.8 %; MCH 32.7 pg (27.0-32.0); MCHC 31.5 g/dL (32.0-37.0); MCV 103.8 fL (80.0-97.0); Mean Platelet Volume 9.7 fL (9.5-12.2); Monocytes % (A) 9.6 %; NRBC Per 100 WBC 0 /100 WBCS (0.0-0.0); Neutrophils # (A) 6.82 X 10*3/uL (1.80-7.70); Neutrophils % (A) 59.4 %; Platelet Count 276 X 10*3/uL (140-440); RDW 12.4 % (11.5-14.5); WBC 11.49 X 10*3/uL (4.50-10.00)
[2021-11-29 09:22] LABS: African American GFR (CKD) 58.1 (60.0-200.0); Anion Gap 8.9 mmol/L (10.00-18.00); BUN/Creat Ratio 15.27 Ratio (12.00-20.00); Blood Urea Nitrogen 16.8 mg/dL (9.0-27.0); Calcium 8.8 mg/dL (8.7-10.3); Carbon Dioxide 24.1 mmol/L (20.0-27.5); Non-African American GFR(CKD) 50.1 (60.0-200.0); Potassium 5.1 mmol/L (3.5-5.5)
[2021-11-29] MEDS: LACTOBACILLUS ACIDOPH & BULGAR 1 EACH PACKET PO SCH (11:21)
[2021-11-29] MEDS: CALCIUM CARBONATE 500 MG CHEWABLE PO SCH (11:21)
--- NOTE | 2021-11-29 11:34 | P.PN ---
Subjective Progress Note Date: 11/29/21 HISTORY OF PRESENT ILLNESS: This is a 71-year-old female with a past medical history significant for GERD and hypothyroidism. Patient does not follow with a block placer. We have been asked to see the patient in consultation for syncope. Patient examined at the bedside. Patient states this morning she got up from the couch to walk into the kitchen. After taking a few steps, she passed out. She believes she was out for 3-4 minutes. She denied having any chest pain or pressure. Denied SOB. Denied loss of bladder or bowel. She reports having an episode similar to this about 6 months ago. She reports she was at [facility] recently and diagnosed with a mild case of scleroderma. Patient reports her blood pressure usually runs on the lower side. * EKG reveals sinus mechanism with no signs of acute ischemia. Low voltage QRS. * Chest xray chronic changes without acute pulmonary process * Laboratory data: WBC 14.0. Hemoglobin 13.1. Platelet count 284. Sodium 138. Potassium 3.7. BUN 26. Creatinine 0.78. Troponin negative 3. * Current home cardiac medications include none * Most recent echocardiogram obtained in September 2020 revealed ejection fraction 55%, mild MR, mild TR. 11/29/2021 Patient examined this morning at the bedside. Patient denies chest pain or pressure. She denies shortness of breath. Telemetry reveals sinus mechanism. Vital signs are stable. Echocardiogram completed revealing ejection fraction 55%, mild MR, mild TR PHYSICAL EXAM: VITAL SIGNS: Reviewed. GENERAL: Well-developed in no acute distress. HEENT: Head is normocephalic. Pupils are equal, round. Sclerae anicteric. Mucous membranes of the mouth are moist. Neck supple. No JVD or thyromegaly LUNGS: Respirations even and unlabored. Lungs essentially clear to auscultation bilaterally. HEART: Regular rate and rhythm. S1 and S2 heard. ABDOMEN: Soft. Nondistended. Nontender. EXTREMITIES: Normal range of motion. No clubbing or cyanosis. Peripheral pulses intact. No lower extremity edema NEUROLOGIC: Awake and alert. Oriented x 3. ASSESSMENT: Syncope, suspect secondary to orthostatic hypotension History of syncope, 6 months ago Right lower quadrant abdominal pain Recent diagnosis of mild scleroderma GERD Hypothyroidism PLAN: The patient may be discharged home today from a cardiac standpoint. She is to follow up on an outpatient basis with Dr. Hernandez Nurse practitioner note has been reviewed by physician. Signing provider agrees with the documented findings, assessment, and plan of care. Objective - Vital Signs Vital signs: Vital Signs Temp 97.9 F 11/29/21 07:00 Pulse 65 11/29/21 07:00 Resp 18 11/29/21 07:00 BP 111/71 11/29/21 07:00 Pulse Ox 99 11/29/21 07:00 Intake & Output 11/28/21 11/29/21 11/29/21 18:59 06:59 18:59 Intake Total 118 240 Balance 118 240 Weight 63.503 kg Intake: Oral 118 240 Other: # Voids 2 1 - Labs CBC & Chem 7: 11/29/21 05:27 11/29/21 05:27 Labs: Abnormal Lab Results - Last 24 Hours (Table) 11/29/21 11/29/21 Range/Units 05:27 05:27 WBC 11.49 H (4.50-10.00) X 10*3/uL RBC 3.70 L (4.10-5.20) X 10*6/uL MCV 103.8 H (80.0-97.0) fL MCH 32.7 H (27.0-32.0) pg MCHC 31.5 L (32.0-37.0) g/dL Monocytes # 1.10 H (0.20-1.00) X 10*3/uL Eosinophils # 0.75 H (0.04-0.35) X 10*3/uL Anion Gap 8.90 L (10.00-18.00) mmol/L Est GFR (CKD-EPI)AfAm 58.1 L (60.0-200.0) Est GFR (CKD-EPI)NonAf 50.1 L (60.0-200.0)
--- NOTE | 2021-11-29 12:51 | P.DS ---
Providers Date of admission: 11/28/21 11:13 Expected date of discharge: 11/29/21 Attending physician: Brandan Meek MD Consults: 11/28/21 10:33 Consult Physician Routine Consulting Provider: Javier Chi Consult Reason/Comments: syncope Do you want consulting provider notified?: Yes Primary care physician: [facility] Course: Discharge Diagnosis: Syncope Head injury resulting in laceration and left lateral orbital region GERD Hypothyroidism Hospital Course: Patient is a very pleasant 71-year-old female with a past medical history of hypothyroidism and GERD. She presented to the emergency department after experiencing a syncopal episode. Patient was reportedly sitting down at home on her couch and got up to get a cup of coffee and passed out on the floor. Patient states she does not remember this episode only remembering getting up to get the coffee and the next thing she knew her was waking her up with EMS. Per report there was no confusion upon awakening and there was no involuntary loss of urine or bowel function. Patient has had previous episodes of syncopal episode in the past while sitting on the toilet. Patient reports she was recently discharged from [facility] after workup for scleroderma. In the emergency department patient underwent full evaluation. Labs revealed mild leukocytosis with WBC count of 14.0 otherwise were unremarkable. Troponin normal findings at less than 0.012. TSH 0.466. CT head and cervical spine negative for acute intercranial process or cervical abnormality showing no acute fracture or dislocation. Chest x-ray showing chronic changes and negative for acute process. Patient did report experiencing right lower quadrant/abdominal pain over the past few days and a pelvic ultrasound was completed revealing no significant abnormalities. EKG showing sinus rhythm at 61 bpm with no noted T-wave or ST abnormalities. Echocardiogram showing normal EF greater than 55% with mild mitral and tricuspid regurgitation. Patient did receive a small laceration to left lateral orbital region which was repaired with Dermabond and Steri-Strips in the emergency department. Orthostatic vitals were completed and negative for orthostatic hypotension. After overnight monitoring and evaluation by cardiology, cardiology clearing patient from cardiac perspective recommending outpatient follow-up. Patient reports that she feels great and is ready to go home denying any headache, lightheadedness, dizziness, chest pain, palpitations, shortness of breath, nausea, vomiting, or experiencing any numbness/tingling/weakness in her extremities. Patient vital signs are unremarkable and she is medically stable for discharge at this time. Physical examination: Patient seen and examined at bedside. Vital signs reviewed and stable. General: Nontoxic, no distress and appears stated age. Derm: Skin warm and dry, normal coloration for ethnicity. Head: Atraumatic, normocephalic and symmetric. Small laceration to left lateral orbital region status post repair with Dermabond and Steri-Strips. Eyes: EOMs intact, no lid lag, and anicteric sclera Mouth: no lip lesions, mucus membranes moist Cardiovascular: regular rate and rhythm with normal S1S2, no murmur, positive posterior tibial pulses bilaterally, and cap refill < 2 seconds. Lungs: Respirations even, regular, and unlabored on room air. Lungs CTA bilaterally, no rhonchi, no rales, no wheezing, and no accessory muscle usage. Abdominal: soft, nontender to palpation, no guarding, no appreciable organomegaly Ext: ROM intact. No gross muscle atrophy, no edema, no contractures Neuro: Speech clear, face symmetrical and CN II-XII grossly intact with no noted focal neuro deficits Psych: Alert and oriented to person, place, time, and situation. Appropriate and pleasant affect. A total of 39 minutes of time were spent preparing this complex discharge summary. Patient Condition at Discharge: Stable Plan - Discharge Summary Discharge Rx Participant: No New Discharge Prescriptions: Continue Levothyroxine Sodium [Synthroid] 125 mcg PO DAILY@0700 Calcium Carbonate [Calcium] 600 mg PO DAILY@1100 Denosumab [Prolia] 60 mg SQ Q180D Famotidine [Pepcid] 20 mg PO BID PRN PRN Reason: GERD L.acidoph,Paracasei, B.lactis [Probiotic] 1 cap PO DAILY@1100 Discharge Medication List Levothyroxine Sodium [Synthroid] 125 mcg PO DAILY@0700 06/21/16 [History] Calcium Carbonate [Calcium] 600 mg PO DAILY@1100 09/17/16 [History] Denosumab [Prolia] 60 mg SQ Q180D 11/28/21 [History] Famotidine [Pepcid] 20 mg PO BID PRN 11/28/21 [History] L.acidoph,Paracasei, B.lactis [Probiotic] 1 cap PO DAILY@1100 11/28/21 [History] Follow up Appointment(s)/Referral(s): Ana Hernandez MD [STAFF PHYSICIAN] - 1 Week (Office will call with appointment time and date.) Kvng Moss DO [Primary Care Provider] - 1-2 days Patient Instructions/Handouts: Syncope (DC) Activity/Diet/Wound Care/Special Instructions: Activity: As tolerated. Take breaks as needed. Diet: Heart healthy and carb consistent diet. Avoid salts, or foods with hidden salts such as canned or boxed foods and frozen dinners. Extra salt makes your heart work harder and traps the fluid in your body for longer. Special Instructions: Take all of your medications as directed and remember to keep all of your doctor's appointments and follow-up as needed. Thank you for allowing us to participate in your care, it was truly a pleasure having you for our patient!!! Discharge Disposition: HOME SELF-CARE
== END 2021-11-29 13:20 | disposition home or self-care (01) ==
LOC: EC 07:44 → 6NMEDSUR 11:13
PROVIDERS: ADMIT Internal Medicine; ATTEND Internal Medicine
DX: R55 Syncope and collapse (principal); S01.81XA Laceration without foreign body of other part of head, initial encounter; K21.9 Gastro-esophageal reflux disease without esophagitis; E03.9 Hypothyroidism, unspecified; R10.31 Right lower quadrant pain; L40.9 Psoriasis, unspecified; M81.0 Age-related osteoporosis without current pathological fracture; M34.9 Systemic sclerosis, unspecified; M41.9 Scoliosis, unspecified; M48.54XA Collapsed vertebra, not elsewhere classified, thoracic region, initial encounter for fracture; R07.81 Pleurodynia; M54.14 Radiculopathy, thoracic region; W18.00XA Striking against unspecified object with subsequent fall, initial encounter; Y92.000 Kitchen of unspecified non-institutional (private) residence as the place of occurrence of the external cause; Z79.890 Hormone replacement therapy; Z79.899 Other long term (current) drug therapy; Z91.041 Radiographic dye allergy status; Z91.013 Allergy to seafood; Z87.440 Personal history of urinary (tract) infections; Z90.711 Acquired absence of uterus with remaining cervical stump; Z90.49 Acquired absence of other specified parts of digestive tract; Z96.1 Presence of intraocular lens; Z80.1 Family history of malignant neoplasm of trachea, bronchus and lung; Z82.49 Family history of ischemic heart disease and other diseases of the circulatory system; Z83.6 Family history of other diseases of the respiratory system
CPT/HCPCS: 96375; 12011; 90471; 96361; 96374; 99285; 36415; 93005; 93306; 80053; 80048; 84443; 83605; 83735; 84484; 85025 ×2; 85610; 85730; 81003; 71046; 76856; 72125; 70450; 90715; G0378 ×2; J2270; J1885

== ENCOUNTER → 2021-12-11 | Outpatient (CLI) | payer BC, MEDICARE ==
--- NOTE | 2021-12-12 03:29 | MR ---
EXAMINATION TYPE: MR cervical spine wo con DATE OF EXAM: 12/11/2021 COMPARISON: 12/24/2018 HISTORY: Cervicalgia, Cervicocranial syndrome Multiplanar multiecho imaging of the cervical spine without contrast. Cervical vertebrae are fairly normal alignment. There is mild disc space narrowing at C5-6 and C6-7 w ith spurring of the endplates. There is small posterior disc bulging at C5-6 and C6-7. Cervical spina l cord shows normal signal pattern. No edema. Spinal canal measures 6.6 mm at C5-6 which is the nar[place] point. No significant spinal stenosis. Brainstem is intact. No compression fracture. No evidence of cervical paraspinal mass. IMPRESSION: Small posterior disc herniations at C5-6 and C6-7 not significantly different than old exam. No signi ficant spinal stenosis. No fracture.
== END | disposition home or self-care (01) ==
LOC: RADMRIMAIN 11:52
PROVIDERS: ATTEND Family Medicine
DX: M50.222 Other cervical disc displacement at C5-C6 level (principal)
CPT/HCPCS: 72141

== ENCOUNTER → 2021-12-18 | Outpatient (CLI) | payer BC ==
--- NOTE | 2021-12-18 19:30 | US ---
EXAMINATION TYPE: US carotid duplex BILAT DATE OF EXAM: 12/18/2021 COMPARISON: CT CLINICAL HISTORY: R42 DIZZINESS; Syncopal episode;dizziness with positional changes EXAM MEASUREMENTS: RIGHT: Peak Systolic Velocity (PSV) cm/sec ----- Right CCA: 67.7 ----- Right ICA: 87.9 ----- Right ECA: 83.8 ICA/CCA ratio: 1.3 RIGHT: End Diastole cm/sec ----- Right CCA: 21.0 ----- Right ICA: 28.5 ----- Right ECA: 10.1 LEFT: Peak Systolic Velocity (PSV) cm/sec ----- Left CCA: 74.3 ----- Left ICA: 103.8 ----- Left ECA: 78.3 ICA/CCA ratio: 1.4 LEFT: End Diastole cm/sec ----- Left CCA: 17.5 ----- Left ICA: 42.4 ----- Left ECA: 11.1 VERTEBRALS (direction of flow): Right Vertebral: Antegrade Left Vertebral: Antegrade Rhythm: Normal irregular, intimal wall plaque is noted at bilateral proximal ICA, but PSV is wnl, bilaterally. IMPRESSION: No hemodynamically significant stenosis in either internal carotid artery. Criteria for Assigning % of Stenosis / Diameter reduction (Estimation based on the indirect measurements of the internal carotid artery velocities (ICA PSV). 1. Normal (no stenosis)=ICA PSV < 125 cm/s: ratio < 2.0: ICA EDV<40 cm/s. 2. Less than 50% stenosis=ICA PSV < 125 cm/s: ratio < 2.0: ICA EDV<40 cm/s. 3. 50 to 69% stenosis=ICA PSV of 125 to 230 cm/s: ration 2.0 ? 4.0: ICA EDV 40-100 cm/s. 4. Greater than 70% stenosis to near occlusion= ICA PSV > 230 cm/s: ratio > 4.0: ICA EDV > 100 cm/s. 5. Near occlusion= ICA PSV velocities may be low or undetectable: variable ratio and ICA EDV. 6. Total occlusion=unable to detect flow.
== END | disposition home or self-care (01) ==
LOC: RADUSWWP 15:22
PROVIDERS: ATTEND Family Medicine
DX: R42 Dizziness and giddiness (principal); R55 Syncope and collapse
CPT/HCPCS: 93880

== ENCOUNTER → 2022-03-20 | Outpatient (CLI) | payer BC ==
[2022-03-20 23:25] LABS: African American GFR (CKD) 65.2 (60.0-200.0); Non-African American GFR(CKD) 56.2 (60.0-200.0); Phosphorus 3.6 mg/dL (2.4-5.1); Total Protein 6.7 g/dL (6.2-8.2)
== END | disposition home or self-care (01) ==
LOC: LABWHC1 14:32
PROVIDERS: ATTEND Internal Medicine Endocrinology, Diabetes & Metabolism
DX: M81.0 Age-related osteoporosis without current pathological fracture (principal); N95.1 Menopausal and female climacteric states; N18.30 Chronic kidney disease, stage 3 unspecified; Z87.310 Personal history of (healed) osteoporosis fracture
CPT/HCPCS: 36415; 82040; 82306; 82310; 82565; 83735; 83970; 84075; 84100; 84155

== ENCOUNTER → 2022-03-27 | Outpatient (CLI) | payer BC ==
[2022-03-27 10:32] LABS: Basophils # (A) 0.05 X 10*3/uL (0.00-0.10); Basophils % (A) 0.6 %; Eosinophils # (A) 0.42 X 10*3/uL (0.04-0.35); Eosinophils % (A) 5.2 %; HCT 41.9 % (37.2-46.3); HGB 13.2 g/dL (12.0-15.0); Immature Grans, Automated 0.4 %; Lymphocytes # (A) 2.11 X 10*3/uL (0.90-5.00); Lymphocytes % (A) 26.1 %; MCH 32.5 pg (27.0-32.0); MCHC 31.5 g/dL (32.0-37.0); MCV 103.2 fL (80.0-97.0); Mean Platelet Volume 10.1 fL (9.5-12.2); Monocytes # (A) 0.84 X 10*3/uL (0.20-1.00); Monocytes % (A) 10.4 %; NRBC Per 100 WBC 0 /100 WBCS (0.0-0.0); Neutrophils # (A) 4.64 X 10*3/uL (1.80-7.70); Neutrophils % (A) 57.3 %; Platelet Count 315 X 10*3/uL (140-440); RBC 4.06 X 10*6/uL (4.10-5.20); RDW 12.5 % (11.5-14.5); WBC 8.09 X 10*3/uL (4.50-10.00)
[2022-03-27 10:51] LABS: ALT 13 U/L (8-44); AST 24 U/L (13-35); African American GFR (CKD) 52.3 (60.0-200.0); Albumin/Globulin Ratio 1.48 (1.60-3.17); Alkaline Phosphatase 52 U/L (41-126); BUN/Creat Ratio 13.67 Ratio (12.00-20.00); Blood Urea Nitrogen 16.4 mg/dL (9.0-27.0); Calcium 10.1 mg/dL (8.7-10.3); Carbon Dioxide 30.1 mmol/L (20.0-27.5); Chloride 105 mmol/L (96-109); Chol/HDL Ratio 2.64 Ratio; Globulin 2.7 g/dL (1.6-3.3); Glucose 103 mg/dL (70-110); Non-African American GFR(CKD) 45.1 (60.0-200.0); Potassium 5.5 mmol/L (3.5-5.5); Sodium 141 mmol/L (135-145); Total Protein 6.7 g/dL (6.2-8.2); VLDL Calculation 12.14 mg/dL (5.00-40.00)
== END | disposition home or self-care (01) ==
LOC: LABWHC1 07:07
PROVIDERS: ATTEND Family Medicine
DX: Z13.220 Encounter for screening for lipoid disorders (principal); S22.000A Wedge compression fracture of unspecified thoracic vertebra, initial encounter for closed fracture; S32.000S Wedge compression fracture of unspecified lumbar vertebra, sequela; M51.36 Other intervertebral disc degeneration, lumbar region; E03.9 Hypothyroidism, unspecified; L94.0 Localized scleroderma [morphea]; E55.9 Vitamin D deficiency, unspecified; Y99.9 Unspecified external cause status
CPT/HCPCS: 36415; 80053; 80061; 84439; 84443; 85025

== ENCOUNTER → 2022-06-13 | Outpatient (CLI) | payer BC ==
[2022-06-13 18:39] LABS: Basophils # (A) 0.05 X 10*3/uL (0.00-0.10); Basophils % (A) 0.5 %; Eosinophils % (A) 1.9 %; HCT 39.5 % (37.2-46.3); HGB 13.2 g/dL (12.0-15.0); Immature Grans, Automated 0.3 %; Lymphocytes # (A) 2.47 X 10*3/uL (0.90-5.00); Lymphocytes % (A) 23.8 %; MCH 34.3 pg (27.0-32.0); MCHC 33.4 g/dL (32.0-37.0); MCV 102.6 fL (80.0-97.0); Mean Platelet Volume 9.7 fL (9.5-12.2); Monocytes # (A) 0.76 X 10*3/uL (0.20-1.00); Monocytes % (A) 7.3 %; NRBC Per 100 WBC 0 /100 WBCS (0.0-0.0); Neutrophils # (A) 6.85 X 10*3/uL (1.80-7.70); Neutrophils % (A) 66.2 %; Platelet Count 323 X 10*3/uL (140-440); RBC 3.85 X 10*6/uL (4.10-5.20); RDW 13.6 % (11.5-14.5); WBC 10.36 X 10*3/uL (4.50-10.00)
[2022-06-13 18:43] LABS: African American GFR (CKD) 60.8 (60.0-200.0); Albumin 4.3 g/dL (3.8-4.9); Albumin/Globulin Ratio 1.43 (1.60-3.17); Anion Gap 11.1 mmol/L (10.00-18.00); BUN/Creat Ratio 15.38 Ratio (12.00-20.00); Blood Urea Nitrogen 16.3 mg/dL (9.0-27.0); Calcium 9.8 mg/dL (8.7-10.3); Carbon Dioxide 25.8 mmol/L (20.0-27.5); Non-African American GFR(CKD) 52.4 (60.0-200.0); Potassium 4.4 mmol/L (3.5-5.5); Total Bilirubin 0.4 mg/dL (0.30-1.20); Total Protein 7.3 g/dL (6.2-8.2)
== END | disposition home or self-care (01) ==
LOC: LABWHC1 11:36
PROVIDERS: ATTEND Student in an Organized Health Care Education/Training Program
DX: L40.0 Psoriasis vulgaris (principal)
CPT/HCPCS: 36415; 80053; 85025

== ENCOUNTER → 2022-07-08 | Outpatient (CLI) | payer BC ==
[2022-07-08 10:24] LABS: ALT 17 U/L (8-44); AST 21 U/L (13-35); Chol/HDL Ratio 2.61 Ratio; LDL Cholesterol,Calculated 136.4 mg/dL (0.0-131.0); VLDL Calculation 11.82 mg/dL (5.00-40.00)
== END | disposition home or self-care (01) ==
LOC: LABWHC1 07:21
PROVIDERS: ATTEND Internal Medicine Cardiovascular Disease
DX: E78.2 Mixed hyperlipidemia (principal)
CPT/HCPCS: 36415; 80061; 84450; 84460

== ENCOUNTER → 2022-08-19 | Outpatient (CLI) | payer BC ==
--- NOTE | 2022-08-19 12:53 | XR ---
EXAMINATION TYPE: XR cervical spine comp DATE OF EXAM: 08/19/2022 12:12 PM INDICATION: Patient age:Female; 71 years old; Reason for study: M542, [id number], [id number]; COMPARISON: 12/11/2018. TECHNIQUE: The cervical spine was imaged in frontal, lateral, odontoid and bilateral oblique. FINDINGS: The osseous structures show normal alignment without evidence of an acute fracture. There are osteoph ytes noted throughout the cervical spine on the anterior and lateral aspects of the vertebral bodies. The intervertebral disk spaces are preserved. Pedicles are intact. Soft tissues are within normal limits. The odontoid appears intact. IMPRESSION: 1. No fracture or dislocation. 2. Moderate degenerative disc disease changes of the cervical spine.
== END | disposition home or self-care (01) ==
LOC: RADXRMAIN 11:50
PROVIDERS: ATTEND Family Medicine
DX: M50.30 Other cervical disc degeneration, unspecified cervical region (principal); G44.209 Tension-type headache, unspecified, not intractable
CPT/HCPCS: 72050

== ENCOUNTER → 2022-09-16 | Outpatient (CLI) | payer BC ==
[2022-09-16 11:00] LABS: African American GFR (CKD) 50.3 (60.0-200.0); Calcium 9.8 mg/dL (8.7-10.3); Non-African American GFR(CKD) 43.4 (60.0-200.0); Phosphorus 3.2 mg/dL (2.4-5.1); Total Protein 6.7 g/dL (6.2-8.2)
[2022-09-16 11:17] LABS: Albumin 4.2 g/dL (3.8-4.9)
== END | disposition home or self-care (01) ==
LOC: LABWHC1 07:33
PROVIDERS: ATTEND Internal Medicine Endocrinology, Diabetes & Metabolism
DX: M81.0 Age-related osteoporosis without current pathological fracture (principal); N18.1 Chronic kidney disease, stage 1; Z87.310 Personal history of (healed) osteoporosis fracture; Z91.14 Patient's other noncompliance with medication regimen
CPT/HCPCS: 36415; 82040; 82306; 82310; 82565; 83735; 83970; 84075; 84100; 84155

== ENCOUNTER → 2023-12-05 | Outpatient (CLI) | payer BC ==
--- NOTE | 2023-12-05 14:12 | CT ---
EXAMINATION TYPE: CT brain lilliam wo con DATE OF EXAM: 12/05/2023 COMPARISON: 11/28/2021 HISTORY: left temporal pulsating pain and headache. no known injury CT DLP: 1401.40 mGycm Automated exposure control for dose reduction was used. TECHNIQUE: CT scan of the head and cervical spine are performed without contrast. Findings: Head CT: Ventricles, basal cisterns and sulci over convexities within normal limits and there is no mass, mass effect or shift of midline structures. No abnormal density is seen throughout the brain parenchyma and there is no acute intra or extra-axia l hemorrhage. Posterior fossa including the brainstem, fourth ventricle and cerebellar pontine angles are grossly n ormal. The intraorbital contents appear normal and symmetric. Visualized paranasal sinuses are well aerated. CT cervical spine: Craniovertebral junction relationships and prevertebral soft tissues are normal. The cervical vertebral segments are normal in height and alignment and there is no fracture subluxati on. There is mild degenerative disc disease at the C5-6 and C6-7 levels where there is mild disc space na rrowing and spondylosis. There is moderate degenerative change of the uncovertebral joints in the mid and lower cervical spine . There is no significant bony encroachment of the cervical canal. There is multilevel bony encroachment of the neural foramina as follows; mild at C3-4 on the right, m ild to moderate C4-5 on the left, mild at C5-6 on the right, and mild at C6-7 on the right. The paraspinal soft tissues unremarkable. IMPRESSION: 1. Head CT: No acute bleed or mass effect. 2. CT cervical spine: No acute trauma. Degenerative changes as described above.
== END | disposition home or self-care (01) ==
LOC: RADCTMAIN 13:26
PROVIDERS: ATTEND Family Medicine
DX: M50.322 Other cervical disc degeneration at C5-C6 level (principal); M50.323 Other cervical disc degeneration at C6-C7 level; M47.812 Spondylosis without myelopathy or radiculopathy, cervical region; M99.71 Connective tissue and disc stenosis of intervertebral foramina of cervical region; G44.89 Other headache syndrome; H93.8X9 Other specified disorders of ear, unspecified ear
CPT/HCPCS: 70450; 72125

== ENCOUNTER → 2023-12-29 | Outpatient (CLI) | payer BC ==
--- NOTE | 2023-12-29 19:42 | US ---
EXAMINATION TYPE: US carotid duplex BILAT DATE OF EXAM: 12/29/2023 COMPARISON: US CLINICAL INDICATION: Female, 73 years old with history of R55 SYNCOPE R42 DIZZY GIDDY I95.1 HYPOTENSI ON; Syncope TECHNIQUE: Carotid duplex ultrasound examination. Indirect Doppler criteria was utilized. FINDINGS: EXAM MEASUREMENTS: RIGHT: Peak Systolic Velocity (PSV) cm/sec ----- Right CCA: 68.0 ----- Right ICA: 84.5 ----- Right ECA: 57.5 ICA/CCA ratio: 1.2 RIGHT: End Diastole cm/sec ----- Right CCA: 20.8 ----- Right ICA: 24.1 ----- Right ECA: 9.5 LEFT: Peak Systolic Velocity (PSV) cm/sec ----- Left CCA: 71.3 ----- Left ICA: 95.6 ----- Left ECA: 59.2 ICA/CCA ratio: 1.3 LEFT: End Diastole cm/sec ----- Left CCA: 24.1 ----- Left ICA: 41.3 ----- Left ECA: 11.3 VERTEBRALS (direction of flow): Right Vertebral: Antegrade Left Vertebral: Antegrade Rhythm: Normal LINE CLOSER NOTES: No significant stenosis seen IMPRESSION: Less than 50% stenosis of the bilateral carotid bifurcations. Criteria for Assigning % of Stenosis / Diameter reduction (Estimation based on the indirect measurements of the internal carotid artery velocities (ICA PSV). 1. Normal (no stenosis)=ICA PSV < 125 cm/s: ratio < 2.0: ICA EDV<40 cm/s. 2. Less than 50% stenosis=ICA PSV < 125 cm/s: ratio < 2.0: ICA EDV<40 cm/s. 3. 50 to 69% stenosis=ICA PSV of 125 to 230 cm/s: ration 2.0 ? 4.0: ICA EDV 40-100 cm/s. 4. Greater than 70% stenosis to near occlusion= ICA PSV > 230 cm/s: ratio > 4.0: ICA EDV > 100 cm/s. 5. Near occlusion= ICA PSV velocities may be low or undetectable: variable ratio and ICA EDV. 6. Total occlusion=unable to detect flow.
== END | disposition home or self-care (01) ==
LOC: RADUSWWP 16:19
PROVIDERS: ATTEND Family Medicine
DX: I65.23 Occlusion and stenosis of bilateral carotid arteries (principal); I95.1 Orthostatic hypotension; G44.86 Cervicogenic headache
CPT/HCPCS: 93880

== ENCOUNTER → 2024-01-05 | Outpatient (CLI) | payer BC ==
--- NOTE | 2024-01-05 22:07 | MR ---
EXAMINATION TYPE: MR brain/cspine wo DATE OF EXAM: 01/05/2024 9:20 PM CLINICAL INDICATION:Female, 73 years old with history of R55,R42,[id number]; PHH, Sever e headaches left sabianism, Dizziness, Syncope collapse, Pain neck into left shoulder COMPARISON: 12/11/2021. TECHNIQUE: Multi planar, multi sequence imaging was performed through the brain including: T1, T2, Inversion rec overy, Diffusion weighted imaging, and gradient echo imaging. No gadolinium was given. Multi planar, multi sequence imaging was performed utilizing: T1-weighted, T2-weighted, and turbo inv ersion recovery imaging of the cervical spine. IV Contrast: cc none FINDINGS: Mild cerebral atrophy with proportional dilation of ventricular system. Scattered foci of high T2 s ignal intensity are seen within the periventricular white matter. Midline structures show no abnormal ity. Diffusion-weighted imaging shows no evidence of restricted diffusion. The susceptibility weighte d images do not reveal any evidence for micro-hemorrhage. The bone marrow signal is within normal limits. Paranasal sinuses and mastoid air cells: No significant paranasal sinus disease. Trace high T2 signal fluid in the bilateral mastoid air cells. Visualized orbits: Bilaterally aphakia. Alignment: The cervical vertebral bodies have preserved heights. Alignment is within normal limits gi filipe patient positioning. Bones: Scattered Modic endplate changes with osteophytes and disc space narrowing. Multilevel degener ative disc disease is noted and most pronounced at the C5-C7 vertebral levels. Cord: The spinal cord is unremarkable with regards to their signal intensity and morphology. Discs: Multilevel disc desiccation is present. C2-C3: No significant disc pathology. The spinal canal is patent. No neural foraminal stenosis. C3-C4: No significant disc pathology. The spinal canal is patent. Bilateral facet and uncovertebral joint arthropathy are present with mild to moderate right neural foraminal stenosis. The left neural foramen is patent. C4-C5: A disc osteophyte complex is present with mild spinal canal stenosis. Bilateral facet and unc overtebral joint arthropathy are present with mild to moderate left neural foraminal stenosis. The ri ght neural foramen is patent. C5-C6: A disc osteophyte complex is present which minimally narrows the ventral subarachnoid space. Bilateral facet and uncovertebral joint arthropathy are present with mild bilateral neural foraminal stenosis. C6-C7: A disc osteophyte complex is present which minimally narrows the ventral subarachnoid space. Bilateral facet and uncovertebral joint arthropathy are present with moderate to severe right and mo derate left neural foraminal stenosis. C7-T1: No significant disc pathology. The spinal canal is patent. No neural foraminal stenosis. Other: None. IMPRESSION: 1. No evidence for disc herniation or significant spinal canal stenosis. 2. 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 Neural foraminal stenosis wors e at C6-C7 with moderate to severe right neural foraminal stenosis. 3. No evidence of intracranial mass or acute/subacute infarct. 4. Minimal nonspecific white matter changes, likely secondary to small vessel ischemic disease.
== END | disposition home or self-care (01) ==
LOC: RADMRIMAIN 20:45
PROVIDERS: ATTEND Family Medicine
DX: G93.89 Other specified disorders of brain (principal); M47.812 Spondylosis without myelopathy or radiculopathy, cervical region; M99.71 Connective tissue and disc stenosis of intervertebral foramina of cervical region; M50.323 Other cervical disc degeneration at C6-C7 level; M50.322 Other cervical disc degeneration at C5-C6 level; M54.81 Occipital neuralgia
CPT/HCPCS: 70551; 72141

== ENCOUNTER → 2024-01-31 | Outpatient (CLI) | payer BC ==
[2024-01-31 13:31] LABS: ALT 16 U/L (8-44); AST 23 U/L (13-35); Albumin 4.2 g/dL (3.8-4.9); Albumin/Globulin Ratio 1.75 Ratio (1.60-3.17); Alkaline Phosphatase 49 U/L (41-126); Bilirubin, Conjugated <0.20 mg/dL (0.20-0.40); Bilirubin,Unconjugated >0.20 mg/dL (0.20-1.00); Chol/HDL Ratio 2.24 Ratio; Globulin 2.4 g/dL (1.6-3.3); LDL Cholesterol,Calculated 114.5 mg/dL (0.0-131.0); Total Bilirubin 0.4 mg/dL (0.3-1.2); Total Protein 6.6 g/dL (6.2-8.2); VLDL Calculation 13.54 mg/dL (5.00-40.00)
== END | disposition home or self-care (01) ==
LOC: LABWHC1 08:23
PROVIDERS: ATTEND Internal Medicine Cardiovascular Disease
DX: E78.2 Mixed hyperlipidemia (principal); D67 Hereditary factor IX deficiency
CPT/HCPCS: 36415; 80061; 80076; 81241

== ENCOUNTER → 2024-08-02 | Outpatient (CLI) | payer BC ==
[2024-08-02 19:34] LABS: ALT 16 U/L (8-44); AST 20 U/L (13-35); Albumin 4.1 g/dL (3.8-4.9); Albumin/Globulin Ratio 1.52 Ratio (1.60-3.17); Alkaline Phosphatase 51 U/L (41-126); Bilirubin, Conjugated <0.20 mg/dL (0.20-0.40); Bilirubin,Unconjugated >0.30 mg/dL (0.20-1.00); Chol/HDL Ratio 2.14 Ratio; Globulin 2.7 g/dL (1.6-3.3); LDL Cholesterol,Calculated 100.4 mg/dL (0.0-131.0); Total Bilirubin 0.5 mg/dL (0.3-1.2); Total Protein 6.8 g/dL (6.2-8.2); VLDL Calculation 15.64 mg/dL (5.00-40.00)
== END | disposition home or self-care (01) ==
LOC: LABWHC1 12:48
PROVIDERS: ATTEND Internal Medicine Cardiovascular Disease
DX: E78.2 Mixed hyperlipidemia (principal)
CPT/HCPCS: 36415; 80061; 80076

== ENCOUNTER → 2024-09-14 | Outpatient (CLI) | payer BC | LOC: CPPFTMAIN 11:18 | PROVIDERS: ATTEND Family Medicine | DX: I27.20 Pulmonary hypertension, unspecified (principal); Z91.041 Radiographic dye allergy status; Z91.013 Allergy to seafood | CPT/HCPCS: 94060; 94726; 94729 ==

== ENCOUNTER → 2025-03-18 | Outpatient (CLI) | payer BC ==
[2025-03-18 15:43] LABS: Albumin 4.1 g/dL (3.8-4.9); Alkaline Phosphatase 47 U/L (41-126); Calcium 9.6 mg/dL (8.7-10.3); Magnesium 2.1 mg/dL (1.5-2.4)
== END | disposition home or self-care (01) ==
LOC: LABWHC1 07:26
PROVIDERS: ATTEND Internal Medicine Endocrinology, Diabetes & Metabolism
DX: M81.0 Age-related osteoporosis without current pathological fracture (principal); Z79.818 Long term (current) use of other agents affecting estrogen receptors and estrogen levels
CPT/HCPCS: 36415; 82040; 82310; 82565; 83735; 83970; 84075; 84100